=== PATIENT | female | born 1950 | race Caucasian/White ===

== ENCOUNTER → 2017-05-21 | Outpatient (CLI) | payer OTHER, MEDICARE | LOC: FIMAGING 09:59 | PROVIDERS: ATTEND Orthopaedic Surgery | DX: Z01.89 Encounter for other specified special examinations (principal); M17.11 Unilateral primary osteoarthritis, right knee ==

== ENCOUNTER 2017-06-05 05:47 | Observation (INO) | payer OTHER, MEDICARE ==
[2017-06-05] MEDS ORDERED: FAMOTIDINE 20 MG TAB PO ONE (05:58)
[2017-06-05] MEDS ORDERED: DEXAMETHASONE 4 MG/ML VIAL IVP ONE (05:58)
[2017-06-05] MEDS ORDERED: ceFAZolin 2 GM/SWFI 2 GM/20 ML SYR IVP ONE (05:58)
[2017-06-05] MEDS ORDERED: ACETAMINOPHEN 325 MG TAB PO ONE (05:58)
[2017-06-05] MEDS ORDERED: ROPIVACAINE 0.2% 80 MG, EPINEPHrine 0.2 MG, KETOROLAC TROMETHAMINE 30 MG in SYRINGE 0 ML IU ONE (06:00)
[2017-06-05] MEDS ORDERED: TRANEXAMIC ACID 3,000 MG in NS (SYRINGE) 50 ML IRR ONE (06:00)
[2017-06-05] MEDS ORDERED: LR 1,000 ML IV ONE (06:33)
[2017-06-05] MEDS ORDERED: TRANEXAMIC ACID 3,000 MG/50 ML BAG IRR ONE (06:37)
[2017-06-05] MEDS ORDERED: MIDAZOLAM 2 MG/2 ML VIAL IVP ONE ×2 (06:51→07:43)
--- NOTE | 2017-06-05 06:54 | PDANEPAE ---
ANE History of Present Illness DJD R knee s/f R TKA ANE Past Medical History - Cardiovascular History Hx Hypertension: Yes Hx Arrhythmias: No Hx Chest Pain: No Hx Coronary Artery / Peripheral Vascular Disease: No Hx CHF / Valvular Disease: No Hx Palpitations: No - Pulmonary History Hx COPD: No Hx Asthma/Reactive Airway Disease: No Hx Recent Upper Respiratory Infection: No Hx Oxygen in Use at Home: No Hx Sleep Apnea: No Sleep Apnea Screening Result - Last Documented: Negative - Neurologic History Hx Cerebrovascular Accident: No Hx Seizures: Yes Hx Dementia: No Neurologic History Comment: hx of seizures 40yrs ago - Endocrine History Hx Diabetes: No - Renal History Hx Renal Disorders: No - Liver History Hx Hepatic Disorders: No - Neurological & Psychiatric Hx Hx Neurological and Psychiatric Disorders: No - Cancer History Hx Cancer: No - Congenital Disorder History Hx Congenital Disorders: Yes Congenital History Comment: epilepsy - GI History Hx Gastrointestinal Disorders: Yes Gastrointestinal History Comment: reflux - Other Health History Other Health History: none - Chronic Pain History Chronic Pain: No - Surgical History Prior Surgeries: none ANE Review of Systems Review of Systems: - Exercise capacity METS (RN): 4 METS - Systems Muscolosketal: Reports: joint pain, joint swelling, other (RA) ANE Patient History - Allergies Allergies/Adverse Reactions: amoxicillin [Amoxicillin] Allergy (Verified 05/06/17 11:34) Rash - Home Medications Home Medications: Topiramate [Topamax 100MG (*)] 100 mg PO BID 04/01/13 [Last Taken 06/05/17 05:15 ] Alendronate Sodium [Fosamax 70 MG (*)] 70 mg PO FR@0700 05/06/17 [Last Taken 1 Week Ago ~05/29/17] Aspirin [Aspirin 81mg (*)] 81 mg PO DAILY 05/06/17 [Last Taken 2 Weeks Ago ~] C/E/Zn/Cu/OM3/DHA/EPA/LUT/ZEAX [Preservision Areds 2 Softgel] 1 each PO HS 05/06 [Last Taken 2 Weeks Ago ~05/22/17] Cholecalciferol Vit D3 [Vitamin D3 (*)] 5,000 units PO DAILY 05/06/17 [Last Taken 2 Weeks Ago ~05/22/17] DULoxetine [Cymbalta 20 MG (RX)] 20 mg PO HS 05/06/17 [Last Taken 06/04/17 19:00 ] Folic Acid [Folic Acid 1 MG (*)] 1,600 mcg PO DAILY 05/06/17 [Last Taken 2 Weeks Ago ~05/22/17] Herbals/Supplements -Info Only 1 ea PO DAILY 05/06/17 [Last Taken 3 Weeks Ago ~ 05/15/17] Losartan/Hctz 50/12.5 [Hyzaar 50/12.5MG (*)] 1 tab PO DAILY 05/06/17 [Last Taken 06/04/17 06:00] Methotrexate Sodium [Rheumatrex 2.5 mg (RX)] 15 mg PO TU 05/06/17 [Last Taken 1 Week Ago ~05/29/17] Omeprazole [Prilosec 20 mg] 20 mg PO DAILY18 05/06/17 [Last Taken 06/05/17 05:15 ] predniSONE 5 mg PO DAILY PRN 05/06/17 [Last Taken 2 Months Ago ~04/07/17] - NPO status NPO Status: no food or drink >8 hours NPO Since - Liquids (Date): 06/04/17 NPO Since - Liquids (Time): 22:00 NPO Since - Solids (Date): 06/04/17 NPO Since - Solids (Time): 19:00 - Anes Hx Anes Hx: no prior problems - Smoking Hx Smoking Status: Former smoker - Alcohol Use Alcohol Use: Rarely - Family Anes Hx Family Anes Hx: none Family Hx Anesthesia Complications: none ANE Labs/Vital Signs - Vital Signs Blood Pressure: 126/96 Heart Rate: 74 Respiratory Rate: 16 O2 Sat (%): 94 Height: 157.48 cm Weight: 83.915 kg ANE Physical Exam - Airway Neck exam: decreased ROM Mallampati Score: Class 2 - Pulmonary Pulmonary: no respiratory distress - Cardiovascular Cardiovascular: regular rate and rhythym - ASA Status ASA Status: II ANE Anesthesia Plan Anesthesia Plan: spinal
[2017-06-05] MEDS ORDERED: MIDAZOLAM 2 MG/2 ML VIAL ONE (06:56)
--- NOTE | 2017-06-05 07:01 | PDHPUP ---
History & Physical Update H&P update statement: This history and physical update is based on an assessment of the patient which was completed after admission or registration (within 24 hours), but prior to the surgery/procedure. H&P update: H&P reviewed & patient examined, no change in patient's condition since H&P completed
[2017-06-05] MEDS ORDERED: fentaNYL 100 MCG/2 ML INJ ONE (07:07)
[2017-06-05] MEDS ORDERED: CYCLOBENZAPRINE 10 MG TAB PO PRN (07:12)
[2017-06-05] MEDS ORDERED: LACTULOSE 20 GM/30 ML UDCUP PO PRN (07:12)
[2017-06-05] MEDS ORDERED: PROMETHAZINE HCL 25 MG SUPPR PR PRN (07:12)
[2017-06-05] MEDS ORDERED: TEMAZEPAM 15 MG CAP PO PRN (07:12)
[2017-06-05] MEDS ORDERED: POLYETHYLENE GLYCOL 3350 17 GM PKT PO PRN (07:12)
[2017-06-05] MEDS ORDERED: ONDANSETRON 4 MG/2 ML VIAL IVP PRN ×2 (07:12→08:04)
[2017-06-05] MEDS ORDERED: DIPHENOXYLATE/ATROPINE LOMOTIL 1 TAB PO PRN (07:12)
[2017-06-05] MEDS ORDERED: ONDANSETRON DISINTEGRATING 4 MG TAB PO PRN (07:12)
[2017-06-05] MEDS ORDERED: BISACODYL 10 MG SUPP PR PRN (07:12)
[2017-06-05] MEDS ORDERED: PROMETHAZINE HCL 25 MG/ML INJ IVP PRN ×2 (07:12→08:04)
[2017-06-05] MEDS ORDERED: diphenhydrAMINE 25 MG CAP PO PRN (07:12)
[2017-06-05] MEDS ORDERED: MAGNESIUM HYDROXIDE 30 ML UDCUP PO PRN (07:12)
[2017-06-05] MEDS ORDERED: oxyCODONE IR 5 MG TAB PO PRN (07:12)
[2017-06-05] MEDS ORDERED: METOCLOPRAMIDE 10 MG/2 ML VIAL IVP PRN ×2 (07:12→08:04)
[2017-06-05] MEDS ORDERED: VANCOMYCIN 1 GM VIAL ONE (07:18)
[2017-06-05] MEDS ORDERED: LIDOCAINE 2% JELLY 5 ML TUBE ONE (07:18)
[2017-06-05] MEDS ORDERED: PROPOFOL/EMULSION 500 MG/50 ML BOTTLE IV ONE (07:18)
[2017-06-05] MEDS ORDERED: LR 1,000 ML IV SCH (07:30)
[2017-06-05] MEDS ORDERED: PROPOFOL 200 MG/20 ML VIAL ONE ×2 (07:58→08:26)
[2017-06-05] MEDS ORDERED: LR 500 ML IV PRN (08:04)
[2017-06-05] MEDS ORDERED: HYDROCODONE/APAP 5/325 TAB PO PRN (08:04)
[2017-06-05] MEDS ORDERED: LABETALOL HCL 5 MG/ML 20 ML MDV IVP PRN (08:04)
[2017-06-05] MEDS ORDERED: DEXAMETHASONE 4 MG/ML VIAL IVP PRN (08:04)
[2017-06-05] MEDS ORDERED: OXYCODONE/APAP 5/325 TAB PO PRN (08:04)
[2017-06-05] MEDS ORDERED: ACETAMINOPHEN 500 MG TAB PO PRN (08:04)
[2017-06-05] MEDS ORDERED: fentaNYL 100 MCG/2 ML INJ IVP PRN (08:04)
[2017-06-05] MEDS ORDERED: PHENYLEPHRINE HCL 100 MCG/ML SYR IVP PRN (08:04)
[2017-06-05] MEDS ORDERED: NALOXONE HCL 0.4 MG/ML INJ IVP PRN (08:04)
[2017-06-05] MEDS ORDERED: ALBUTEROL 3 ML DEYVIAL IH PRN (08:04)
[2017-06-05] MEDS ORDERED: DEXAMETHASONE 4 MG/ML VIAL ONE ×2 (08:28)
--- NOTE | 2017-06-05 08:35 | POSTOPPROG ---
Post Op Note Date of Operation: 06/05/17 Surgeon: Randall Thompson Medical Director/Head Team Physician: alcon thompson Anesthesiologist: dr. morales Anesthesia: Spinal, Other (Specify) (right adductor canal block) Pre-op Diagnosis: right knee OA Post-op Diagnosis: same Indication: right knee pain due to OA that failed conservatie measures Procedure: R TKA robot assisted Findings: severe knee OA Inf/Abcess present in the surg proc area at time of surgery?: No EBL: 50-100
--- NOTE | 2017-06-05 08:58 | POSTANESTH ---
Post Anesthetic Evaluation Cardiovascular Status: Normal, Stable Respiratory Status: Normal, Stable Level of Consciousness/Mental Status: Can Participate in Eval Pain Control: Adequate, Prn Tx Ordered Nausea/Vomiting Control: Adequate, Prn Tx Ordered Complications Possibly Related to Anesthesia: None Noted
[2017-06-05] MEDS: LOSARTAN/HCTZ 50/12.5 1 TAB PO SCH (10:06)
[2017-06-05] MEDS: SENNOSIDES/DOCUSATE SODIUM TAB PO SCH ×2 (10:06→20:29)
[2017-06-05] MEDS: ASPIRIN 81 MG CHEWABLE TAB PO SCH ×2 (10:06→20:28)
[2017-06-05] MEDS: TOPIRAMATE 100 MG TAB PO SCH ×2 (10:27→20:29)
[2017-06-05] MEDS: ACETAMINOPHEN 325 MG TAB PO SCH ×3 (11:53→23:48)
[2017-06-05] MEDS: ceFAZolin 2 GM/SWFI 2 GM/20 ML SYR IVP SCH ×2 (13:43→21:48)
[2017-06-05] MEDS ORDERED: ceFAZolin 2 GM/DEXTROSE 100 ML IV SCH (14:00)
[2017-06-05] MEDS ORDERED: PANTOPRAZOLE SODIUM 40 MG TAB PO SCH (18:00)
[2017-06-05] MEDS: FAMOTIDINE 20 MG TAB PO SCH (20:28)
[2017-06-05] MEDS ORDERED: DULoxetine 20 MG CAP PO SCH (21:00)
--- NOTE | 2017-06-06 01:10 | GOP ---
[f rep st] OPERATIVE REPORT DATE OF OPERATION: 06/05/2017 SURGEON: Jose F Gonzales MD [facility] COORDINATOR: Sonia Gonzales PA-C ANESTHESIA: Spinal. PREOPERATIVE DIAGNOSIS: Right knee osteoarthritis. POSTOPERATIVE DIAGNOSIS: Right knee osteoarthritis. PROCEDURE PERFORMED: Right total knee arthroplasty with computer navigation, robotic assist. FINDINGS: Severe medial patellofemoral osteoarthritis. ESTIMATED BLOOD LOSS: 30 cc. INDICATIONS: The patient is a 66-year-old female with severe and progressive pain and deformity of t he right knee unresponsive to conservative care. The risks and benefits of surgical intervention wer e explained in detail. DESCRIPTION OF PROCEDURE: The patient was brought to the operative room and placed on the table in t he supine position. Spinal anesthesia was induced without difficulty. A pneumatic tourniquet was appl ied about the right proximal thigh, and the leg was prepped and draped in a sterile fashion. The leg hurst was applied. After exsanguination by elevation the tourniquet was inflated to 250 mmHg. Incision was made anterior medial from the tibial tuberosity to a point 2 cm proximal to the superior pole of the patella. Medial parapatellar arthrotomy was carried out from the superior pole of the pa tella and posteriorly in line with the fibers of the Type II VMO. The medial collateral ligament was elevated and the infrapatellar fat pad was resected. The patella was everted and the articular surface was excised. A 32 mm patellar button was placed. Attention was turned first to the distal aspect of the femur. After exposure of the femur, 2 half pi ns were placed for fixation of the femoral array. In a similar fashion, 2 pins were placed anteromed ial on the tibia for fixation of the tibial array. External land marking and registration of the hip center was performed without difficulty. Internal femoral and tibial registration was carried out w ithout difficulty and the femoral and tibial checkpoints were placed and verified for accuracy. Attention was turned to the femur. The foot print for the size 2 femoral component was cut with the saw using the [employer] robotic system and verified for accuracy against the CT based plan. In a similar f ashion, the saw was used to cut the footprint for the size 3 tibial component using the [employer] system an d verified for accuracy against the CT based plan. The tibial articular surface was excised without d ifficulty, followed by the intercondylar box cut. The knee was extended and the remnants of the medial and lateral meniscus were excised. The posterior capsule was injected with ropivacaine, epinephrine and Toradol. A size 3 tibial tray was positioned . Trial reduction was then carried out. There was excellent range of motion, alignment, and stability using the 3 x 9 mm polyethylene. All trials were then removed. The joint was thoroughly irrigated and carefully dried. The cemented co mponents were implanted. The permanent 3 x 9 mm polyethylene was placed without difficulty. The tourniquet was deflated and all bleeders were coagulated. The wound was thoroughly irrigated and closed using interrupted sutures of 2-0 Vicryl for the joint capsule. The subcu was closed with 3-0 V icryl and the skin with 4-0 Monocryl. Dermabond and Steri-Strips were applied followed by a compress rhonda dressing. The patient was then moved from the operating room to the recovery room in good conditi on, having tolerated the procedure well. /[id number]/MODL
[2017-06-06] MEDS: ACETAMINOPHEN 325 MG TAB PO SCH (05:21)
[2017-06-06 05:27] VITALS: RESP 16; TEMP 98.3
[2017-06-06 07:21] VITALS: BP 105/71; O2SAT 98
[2017-06-06] MEDS: SENNOSIDES/DOCUSATE SODIUM TAB PO SCH (08:00)
[2017-06-06] MEDS: FAMOTIDINE 20 MG TAB PO SCH (08:01)
[2017-06-06] MEDS: ASPIRIN 81 MG CHEWABLE TAB PO SCH (08:01)
[2017-06-06] MEDS: TOPIRAMATE 100 MG TAB PO SCH (08:01)
[2017-06-06] MEDS: LOSARTAN/HCTZ 50/12.5 1 TAB PO SCH (08:10)
--- NOTE | 2017-06-06 10:01 | SOAPPROG ---
SOAP Progress Note Assessment/Plan: Assessment: Patient is doing well POD 1 s/p R TKA pain is well controlled on oral pain meds anemia: level is expected initially postop. asymptomatic VTE ppx: recommend ASA 81 mg BID for 4 weeks. cont LAURENCE wilson and SCDs D/c planning: d/c to home today, pending release from PT Plan: 06/06/17 10:00 Subjective: Mindy is doing well today, denies SOB, chest pain and N/V. Objective: Vital Signs Temp Pulse Resp BP Pulse Ox 36.8 C 70 16 105/71 98 06/06/17 07:20 06/06/17 07:20 06/06/17 07:20 06/06/17 08:10 06/06/17 07:20 Laboratory Results 06/06/17 05:01 06/05/17 06/06/17 06/07/17 05:59 05:59 05:59 Intake Total 3170 520 Output Total 1375 Balance 1795 520 RLE: incision dressing is clean and dry, NVI, +pf/df ICD10 Worksheet Patient Problems: Problems Problem Status Onset Primary localized osteoarthritis of left knee Acute
[2017-06-06 11:33] VITALS: PULSE 78
--- NOTE | 2017-06-10 21:10 | GDS ---
[f rep st] DISCHARGE SUMMARY ADMISSION DIAGNOSIS: Right knee osteoarthritis. DISCHARGE DIAGNOSIS: Right knee osteoarthritis. PROCEDURE: Right total knee arthroplasty, robot assisted. VTE PROPHYLAXIS: Recommend aspirin 81 mg twice daily for 4 weeks. BRIEF DESCRIPTION OF HOSPITAL STAY: Patient was admitted for an elective joint arthroplasty. The pa bonita tolerated the procedure well and has passed physical therapy. The patient was given appropriat e antibiotic prophylaxis and venous thromboembolism prophylaxis. The patient's pain was well control led on oral pain medication, patient was holding down food, and had urinated. Decision was made to d ischarge the patient. The patient was given post-operative prescriptions pre-operatively. PLAN: To follow up as scheduled on June 25 at 9:30 a.m. /[id number]/MODL
== END 2017-06-06 10:24 | disposition home or self-care (01) ==
LOC: INTOOBSV 05:47 → F3N 05:47
PROVIDERS: ADMIT Orthopaedic Surgery; ATTEND Orthopaedic Surgery
PROC: 8E0W0CZ Robotic Assisted Procedure of Trunk Region, Open Approach (ICD-10-PCS; principal; 2017-06-05 07:15)
PROC: 0SRC069 Replacement of Right Knee Joint with Oxidized Zirconium on Polyethylene Synthetic Substitute, Cemented, Open Approach (ICD-10-PCS; principal; 2017-06-05 07:15)
DX: M17.11 Unilateral primary osteoarthritis, right knee (principal); I10 Essential (primary) hypertension; Z79.82 Long term (current) use of aspirin; Z87.891 Personal history of nicotine dependence; Z88.0 Allergy status to penicillin
CPT/HCPCS: 20985; 27447; 73560; 88311; 97116; 97161; 97165; 97530; C1713; C1776; G8978; G8979; G8980; G8987; G8988; G8989; J0171; J0690; J1100; J1885; J2250; J2704; J2795; J3010; J3370; J2370

== ENCOUNTER → 2018-02-13 | Outpatient (CLI) | payer OTHER, MEDICARE | LOC: CIMAGING 09:50 | PROVIDERS: ATTEND Family Medicine | DX: S92.352A Displaced fracture of fifth metatarsal bone, left foot, initial encounter for closed fracture (principal); M76.62 Achilles tendinitis, left leg; M19.072 Primary osteoarthritis, left ankle and foot | CPT/HCPCS: 73620-PO ==